=== PATIENT | female | born 1975 | race Caucasian/White ===

== ENCOUNTER 2020-07-20 11:11 | Emergency (ER) | payer BC, SELFPAY ==
[2020-07-20 11:47] VITALS: BP 114/74; PULSE 98; RESP 20; TEMP 37; O2SAT 99; BMI 35.3
[2020-07-20 12:08] VITALS: PULSE 82
--- NOTE | 2020-07-20 12:26 | CT_ITS ---
WS: [id number] CT CERVICAL SPINE HISTORY: L arm radicular pain TECHNIQUE: Contiguous 2.5 mm axial imaging performed through the entire cervical spine. Sagittal and coronal reformats also performed. All CT scans at [facility] use at least one of these do se optimization techniques: automated exposure control; mA and/or kV adjustment per patient size (inc ludes targeted exams where dose is matched to clinical indication); or iterative reconstruction. DLP: 605.37 mGy.cm COMPARISON: None available. Reversal and straightening of the normal cervical lordosis. Vertebral body heights and disc space hei ghts are normal. Craniocervical junction and lateral masses are aligned. The odontoid is intact. C2-C3: Normal. C3-C4: Normal. C4-C5: Normal. C5-C6: Very small proximal LEFT foraminal disc protrusion. C6-C7: Moderate sized LEFT foraminal disc protrusion. Slightly contacting the LEFT lateral thecal sac . C7-T1: Normal. Paravertebral soft tissues are normal. CT/CT cervical spin wo con* [id number] IMPRESSION: 1. Increased density in the proximal LEFT foramen at C6-7 contacting the C7 ne rve root. This may be an artifact from patient's shoulders were disc protrusion . 2. Very tiny LEFT foraminal disc protrusion at C5-6. 3. No central stenosis. 4. Recommend nonemergent follow-up MRI cervical spine.
--- NOTE | 2020-07-20 12:40 | W.ED.CHESTPA ---
HPI - Chest Pain General: Chief Complaint: Chest Pain Stated Complaint: chest pains Time Seen by Provider: 07/20/20 12:06 History of Present Illness: HPI narrative: 44-year-old female comes in complaining of left shoulder pain radiating down her left arm she has had this for over a week. She is seen her primary care doctor about the given her some muscle relaxers she did not have a real significant release. Unfortunately she has a history of coronary artery disease 9 months ago patient underwent angiography with a stent. She states this feels somewhat similar to that she has not had any stress testing since that stent she does tell me she continues to take her Plavix regularly. She has noticed that the arm pain is positional and when she sleeps laying on her left side actually does seem to make it better. She not noticed anything that seems to aggravate it. Not been associated with nausea vomiting or shortness of breath. MD complaint: chest pain Pertinent past history: coronary artery disease Onset (ago): week(s) Timing of current episode: episodic Prior episodes: Yes Onset: during rest and during exertion Pain radiation: right arm and left arm Severity: mild Quality: heaviness Relieving factors: other (Positional) Associated symptoms: Deny abdominal pain, diaphoresis, dyspnea, fever(s), leg edema, nausea, palpitations, sense of impending doom, syncope or vomiting Treatment prior to arrival: none Review of Systems Const: Denies: fever(s) or diaphoresis ENMT: Denies: throat pain, ear or mastoid pain, nasal discharge or nasal congestion Card: Denies: palpitations or syncope Resp: Denies: dyspnea GI: Denies: abdominal pain, nausea or vomiting : Denies: flank pain, difficulty voiding, dysuria, urinary frequency or urinary urgency Skin/Breast: Denies: rash or pruritus PFS ED PFSH: Medical History CAD (coronary artery disease) HTN (hypertension) Hyperlipidemia Old myocardial infarction Family History Father Diabetes Heart disease Hypercholesterolemia Grandmother Diabetes Other Cancer Social History Smoking and tobacco status: current every day smoker cigarettes Packs smoked per day: 1 Years cigarettes smoked: 29 Physical Exam Const: COMMON NORMALS: no acute distress GENERAL APPEARANCE: cooperative and comfortable ORIENTATION/CONSCIOUSNESS: Yes awake, Yes oriented to person, Yes oriented to place and Yes oriented to time HENMT: COMMON NORMALS: normocephalic, atraumatic, hearing grossly normal bilaterally, external ears normal, EAC's normal, TM's normal bilaterally, Normal nasal mucous membranes and turbinates present, moist oral mucous membranes and oropharynx normal HEAD & SCALP: normocephalic and atraumatic NOSE: Normal nasal mucous membranes and turbinates present EXTERNAL EAR: Yes external ears normal EXTERNAL AUDITORY CANAL: EAC's normal TYMPANIC MEMBRANE: TM's normal bilaterally Eye: COMMON NORMALS: Equal, round and reactive pupils present, EOMs intact bilaterally, conjunctivae normal and no scleral icterus CONJUNCTIVA: Yes conjunctivae normal PUPIL: Yes Equal, round and reactive pupils present Neck/C-Spine: COMMON NORMALS: no JVD Resp: COMMON NORMALS: normal respiratory effort, No retractions, No use of accessory muscles and clear to auscultation bilaterally AUSCULTATION: clear to auscultation bilaterally Cardio: COMMON NORMALS: no JVD, regular rate, regular rhythm and No murmurs present (Cardio) RATE: regular rate RHYTHM: regular rhythm GI: COMMON NORMALS: Soft to palpation and No hepatosplenomegaly present AUSCULTATION: Yes normoactive bowel sounds PALPATION: Yes Soft to palpation, No Tenderness to palpation present (GI), No Guarding due to palpation present (GI) and Yes No hepatosplenomegaly present Extremity: COMMON NORMALS: normal to inspection, capillary refill normal, no clubbing, cyanosis or edema, no calf tenderness and no pedal edema Neuro: SENSORIUM/ORIENTATION: Yes oriented to person, Yes oriented to place and Yes oriented to time Skin: COMMON NORMALS: no rashes or lesions noted GENERAL SKIN EXAM: no rashes or lesions noted Course Vital Signs: Vital signs: Vital Signs Temperature 98.6 F 07/20/20 11:47 Pulse Rate 63 07/20/20 14:50 Respiratory Rate 16 07/20/20 14:50 Blood Pressure 111/56 07/20/20 14:50 Pulse Oximetry 98 07/20/20 14:50 MDM - Chest Pain MDM Narrative: Medical decision making narrative: KG is unremarkable and troponin is negative despite 1 week of symptoms. We will get her set up for an outpatient sestamibi stress its been to nephew since she had the angiogram this sounds more positional in nature she is noted when she lays on the left side she can make it better she can exacerbated by use. If it persists may need further evaluation after the stress test if it is negative. Lab Data: Labs: Lab Results 07/20/20 07/20/20 07/20/20 Range/Units 12:45 12:45 12:45 WBC 9.6 (4.0-10.0) 10^3/ uL RBC 5.00 (4.1-5.3) 10^6/u L Hgb 14.4 (11.5-15.3) g/dL Hct 43.7 (37.0-47.0) % MCV 87.4 (81-99) fL MCH 28.8 (28.0-34.0) pg MCHC 33.0 (30.0-36.0) g/dL RDW 12.9 (12.1-15.1) % Plt Count 208 (130-400) 10^3/c mm MPV 10.7 H (7.4-10.4) fL Neut % (Auto) 70.2 % Lymph % (Auto) 23.5 % [place] % (Auto) 4.8 % Eos % (Auto) 0.9 % Baso % (Auto) 0.2 % Neut # (Auto) 6.75 (1.8-7.7) 10^3/u L Lymph # (Auto) 2.3 (0.8-4.8) 10^3/u L [place] # (Auto) 0.5 (0.2-0.9) 10^3/u L Eos # (Auto) 0.1 (0.0-0.8) 10^3/u L Baso # (Auto) 0.0 (0.0-0.1) 10^3/u L Nucleated RBC % (a uto) 0 % Nucleated RBCs # 0.0 /100WBC Sodium 135 L (136-145) mmol/L Potassium 4.7 (3.5-5.1) mmol/L Chloride 101 (98-107) mmol/L Carbon Dioxide 26 (22-29) mmol/L Anion Gap 12.7 (5-19) BUN 8 (6-20) mg/dL Creatinine 0.6 (0.5-0.9) mg/dL GFR Calculation 109.1 (90-130) mL/min Glucose 150 H (65-115) mg/dL Calculated Osmolal ity 281 L (285-295) mOsm/k g Calcium 9.0 (8.5-10.5) mg/dL Total Bilirubin 0.2 (0.15-1.2) mg/dL AST 11 (0-32) U/L ALT 9 (0-33) U/L Alkaline Phosphata se 66 (35-105) IU/L Troponin T Baselin e 6 (0-10) ng/L Troponin T 120 Min [place] (0-10) ng/L Delta Troponin T (0-10) ABS# Total Protein 6.6 (6.6-8.7) g/dL Albumin 4.1 (3.5-5.2) g/dL Globulin 2.5 (1.3-4.6) g/dL 07/20/20 Range/Units 14:30 WBC (4.0-10.0) 10^3/ uL RBC (4.1-5.3) 10^6/u L Hgb (11.5-15.3) g/dL Hct (37.0-47.0) % MCV (81-99) fL MCH (28.0-34.0) pg MCHC (30.0-36.0) g/dL RDW (12.1-15.1) % Plt Count (130-400) 10^3/c mm MPV (7.4-10.4) fL Neut % (Auto) % Lymph % (Auto) % [place] % (Auto) % Eos % (Auto) % Baso % (Auto) % Neut # (Auto) (1.8-7.7) 10^3/u L Lymph # (Auto) (0.8-4.8) 10^3/u L [place] # (Auto) (0.2-0.9) 10^3/u L Eos # (Auto) (0.0-0.8) 10^3/u L Baso # (Auto) (0.0-0.1) 10^3/u L Nucleated RBC % (a uto) % Nucleated RBCs # /100WBC Sodium (136-145) mmol/L Potassium (3.5-5.1) mmol/L Chloride (98-107) mmol/L Carbon Dioxide (22-29) mmol/L Anion Gap (5-19) BUN (6-20) mg/dL Creatinine (0.5-0.9) mg/dL GFR Calculation (90-130) mL/min Glucose (65-115) mg/dL Calculated Osmolal ity (285-295) mOsm/k g Calcium (8.5-10.5) mg/dL Total Bilirubin (0.15-1.2) mg/dL AST (0-32) U/L ALT (0-33) U/L Alkaline Phosphata se (35-105) IU/L Troponin T Baselin e (0-10) ng/L Troponin T 120 Min [place] 6.00 (0-10) ng/L Delta Troponin T 0 (0-10) ABS# Total Protein (6.6-8.7) g/dL Albumin (3.5-5.2) g/dL Globulin (1.3-4.6) g/dL Discharge Plan Discharge Patient Disposition: Home Condition: Stable Prescriptions: New tizanidine 4 mg tablet 4 mg PO Q6H PRN (Reason: muscle spasticity) Qty: 30 RF: 0 hydrocodone-acetaminophen 5-325 mg tablet 1 tab PO Q6H PRN (Reason: pain) Qty: 15 RF: 0 Medrol (Facundo) 4 mg tablets,dose pack See Rx Instructions .ROUTE .COMPLEX Qty: 21 RF: 0 No Action clopidogrel 75 mg tablet 75 mg PO DAILY@0500 RF: 0 simvastatin 40 mg tablet 40 mg PO DAILY@1900 RF: 0 acetaminophen [Tylenol Extra Strength] 500 mg tablet 500 mg PO Q6H PRN (Reason: PAIN/FEVER) RF: 0 metformin 500 mg tablet 500 mg PO DIRECTED RF: 0 losartan 25 mg tablet 25 mg PO DAILY@1900 RF: 0 aspirin [Adult Low Dose Aspirin] 81 mg tablet,delayed release (DR/EC) 162 mg PO DAILY@0500 RF: 0 cyclobenzaprine 10 mg tablet 10 mg PO Q8H PRN (Reason: MUSCLE SPASMS) RF: 0 metoprolol succinate 25 mg tablet extended release 24 hr 12.5 mg PO DAILY@1900 RF: 0 Acid Show Host Or Hostess (omeprazole) 20 mg Capsule,Delayed Release(Dr/Ec) 20 mg PO DAILY PRN (Reason: EXCESS ACID) RF: 0 Discharge Orders: Discharge ED (Routine); Ordered 07/20/20 Ordered By: Enrique Diaz Referrals: Kirstie Shah, COMMUNICATIONS INSTRUCTOR [Primary Care Provider] - Discharge Diet: Usual diet Discharge Activity: Increase activity as tolerated Patient Instructions: Opioid Safety Coding Level of Care Code ED Organ Tuner Electronic for Shelly Winston
[2020-07-20] MEDS: morphine 4 mg/mL SDV 1 mL IM (12:51)
[2020-07-20] MEDS: orphenadrine 30 mg/mL Inj 2 mL 60 MG IM (12:51)
[2020-07-20 13:03] LABS: Basophils % 0.2 %; Eosinophils # 0.1 10^3/uL (0.0-0.8); Eosinophils % 0.9 %; Hematocrit 43.7 % (37.0-47.0); Hemoglobin 14.4 g/dL (11.5-15.3); Lymphocytes # 2.3 10^3/uL (0.8-4.8); Lymphocytes % 23.5 %; Mean Corpuscular Hemoglobin 28.8 pg (28.0-34.0); Mean Corpuscular Volume 87.4 fL (81-99); Mean Platelet Volume 10.7 fL (7.4-10.4); Monocytes # 0.5 10^3/uL (0.2-0.9); Monocytes % 4.8 %; Neutrophils # 6.75 10^3/uL (1.8-7.7); Neutrophils % 70.2 %; Nucleated Red Blood Cells % 0 %; Platelet Count 208 10^3/cmm (130-400); Red Cell Distribution Width 12.9 % (12.1-15.1); White Blood Count 9.6 10^3/uL (4.0-10.0)
[2020-07-20 13:14] LABS: Alanine Aminotransferase 9 U/L (0-33); Albumin Level 4.1 g/dL (3.5-5.2); Alkaline Phosphatase 66 IU/L (35-105); Anion Gap 12.7 (5-19); Aspartate Amino Transferase 11 U/L (0-32); Blood Urea Nitrogen 8 mg/dL (6-20); Carbon Dioxide 26 mmol/L (22-29); Chloride 101 mmol/L (98-107); Globulin 2.5 g/dL (1.3-4.6); Glomerular Filtration Rate 109.1 mL/min (90-130); Glucose 150 mg/dL (65-115); Osmolality Calculated 281 mOsm/kg (285-295); Potassium 4.7 mmol/L (3.5-5.1); Sodium 135 mmol/L (136-145); Total Bilirubin 0.2 mg/dL (0.15-1.2); Total Protein 6.6 g/dL (6.6-8.7)
[2020-07-20 13:16] LABS: Troponin(5th) Baseline 6 ng/L (0-10)
[2020-07-20 14:00] VITALS: PULSE 82
--- NOTE | 2020-07-20 14:08 | ECG_ITS ---
[facility] Test Date: 2020-07-20 Pat Name: Suri Sharpe Department: Room: Gender: Female Train Dispatcher: : [id number] Requested By: Enrique Medrano Order Number: [id number] Jennifer MD: Nasrin Jackson M.D. Measurements Intervals [place] Rate: 69 P: 31 NE: 149 QRS: -18 QRSD: 96 T: 15 QT: 396 QTc: 426 Interpretive Statements SINUS RHYTHM LOW QRS VOLTAGE IN PRECORDIAL LEADS [QRS DEFLECTION < 1.0 mV IN CHEST LEADS] INCOMPLETE RIGHT BUNDLE BRANCH BLOCK MODERATE T-WAVE ABNORMALITY, CONSIDER ANTERIOR ISCHEMIA Compared to ECG 07/20/2020 11:58:45 Indeterminate axis no longer present T-wave abnormality still present Possible ischemia still present Electronically Signed On 07-20-2020 18:17:46 CDT by Nasrin Jackson M.D. [id number]
[2020-07-20 14:25] VITALS: BP 111/56; PULSE 63; RESP 16; O2SAT 98
[2020-07-20 14:50] VITALS: BP 111/56; PULSE 63; RESP 16; O2SAT 98
[2020-07-20 15:15] LABS: Troponin 5 2HR Delta 0 ABS# (0-10)
--- NOTE | 2020-07-20 18:08 | ECG_ITS ---
[facility] Test Date: 2020-07-20 Pat Name: Suri Sharpe Department: Room: Gender: Female Pl Sql Developer: : 1975 Requested By: Enrique Medrnao Order Number: [id number] Jennifer MD: Nasrin Jackson M.D. Measurements Intervals [place] Rate: 82 P: 44 GA: 152 QRS: -35 QRSD: 92 T: 15 QT: 378 QTc: 443 Interpretive Statements SINUS RHYTHM INDETERMINATE AXIS LOW QRS VOLTAGE IN PRECORDIAL LEADS INCOMPLETE RIGHT BUNDLE BRANCH BLOCK [90+ ms QRS DURATION, TERMINAL R IN V1/V2, 40+ ms S IN I/aVL/V4/V5/V6] MODERATE T-WAVE ABNORMALITY, CONSIDER ANTERIOR ISCHEMIA [-0.1+ mV T WAVE IN V3/V4] Compared to ECG 12/08/2017 05:59:12 Indeterminate axis now present T-wave abnormality still present Possible ischemia still present Electronically Signed On 07-20-2020 18:19:09 CDT by Nasrin Jackson M.D. [id number]
--- NOTE | 2020-07-25 15:03 | DCPLANNER ---
late entry - lining caser had message to schedule an outpatient stress test for patient. technology services manager faxed the signed order to centralized scheduling for out patient stress test on 07.23.20. technology services manager will call for appointment information.
--- NOTE | 2020-07-26 08:38 | DCPLANNER ---
Patient has an outpatient stress test scheduled for Thursday, August 06, 2020 at 10:00. Centralized scheduling will call patient with appointment information.
--- NOTE | 2020-08-07 15:33 | DCPLANNER ---
Patient had a follow up appointment scheduled for 08.06.20 for an outpatient stress test - patient did not attend appointment.
== END 2020-07-20 14:50 | disposition home or self-care (01) ==
PROVIDERS: Emergency Provider Family Medicine; PCP Nurse Practitioner Family
DX: R07.9 Chest pain, unspecified (principal); M25.512 Pain in left shoulder; Z79.82 Long term (current) use of aspirin; Z79.02 Long term (current) use of antithrombotics/antiplatelets; I25.10 Atherosclerotic heart disease of native coronary artery without angina pectoris; I10 Essential (primary) hypertension; E78.5 Hyperlipidemia, unspecified; I25.2 Old myocardial infarction; F17.210 Nicotine dependence, cigarettes, uncomplicated
CPT/HCPCS: 72125; 80053; 84484; 85025; 93005; 96372; 99283; J2270; J2360

== ENCOUNTER 2022-12-17 15:28 | Outpatient (CLI) | payer OTHER, SELFPAY ==
--- NOTE | 2022-12-17 | XR_ITS ---
WS: [id number] EXAMINATION: XR foot RT min 3V* [id number] REASON FOR EXAM: HEEL PAIN, RIGHT COMPARISON: None available. ORDER DATE: 12/17/2022 3:50 PM TECHNIQUE: 3 views of the right foot were obtained. X-RAY FINDINGS: There are no fractures or dislocations. No focal abnormal soft tissue swelling. Joint spaces are pres erved. There is a 5 mm plantar calcaneal spur. IMPRESSION: No fractures or dislocations of the right foot.
== END 2022-12-17 15:29 | disposition home or self-care (01) ==
PROVIDERS: PCP Nurse Practitioner Family; Visit Provider Nurse Practitioner Family
DX: M79.671 Pain in right foot (principal)
CPT/HCPCS: 73630